=== PATIENT | female | born 1945 | race Caucasian/White ===

== ENCOUNTER 2024-08-12 18:25 | Emergency (ER) | payer OTHER, MEDICARE ==
[~2024-08-12] VITALS: Ht 170.2 cm; Wt 68.7 kg
[2024-08-12 18:35] VITALS: TEMP 98.7
[2024-08-12 18:45] VITALS: BP 116/48; O2SAT 94
[2024-08-12] MEDS ORDERED: VITA1TAB56 PO (19:24)
[2024-08-12] MEDS ORDERED: CHOL100043 PO (19:24)
[2024-08-12] MEDS ORDERED: MELA10TA7 PO (19:24)
[2024-08-12] MEDS ORDERED: DIVA125C5 PO (19:24)
[2024-08-12] MEDS ORDERED: ALEN70TA80 PO (19:24)
[2024-08-12] MEDS ORDERED: APIX5TAB PO (19:24)
[2024-08-12] MEDS ORDERED: OMEG100019 PO (19:24)
[2024-08-12] MEDS ORDERED: QUET25TA PO (19:24)
[2024-08-12] MEDS ORDERED: CITA40TA11 PO (19:24)
[2024-08-12] MEDS ORDERED: ATOR10TA PO (19:24)
[2024-08-12] MEDS ORDERED: ACET-73 PO (19:24)
[2024-08-12] MEDS ORDERED: METO25TA6 PO (19:24)
[2024-08-12] MEDS ORDERED: LIOT5TAB11 PO (19:24)
[2024-08-12] MEDS ORDERED: MEMA10TA PO (19:24)
[2024-08-12] MEDS ORDERED: POLY17PO4 PO (19:24)
[2024-08-12] MEDS ORDERED: LEVO125T8 PO (19:24)
[2024-08-12] MEDS ORDERED: DONE10TA44 PO (19:24)
[2024-08-12] MEDS ORDERED: MENT113O TP (19:24)
== END 2024-08-12 20:52 ==
LOC: ER 18:41
DX: R22.42 Localized swelling, mass and lump, left lower limb (principal); M79.605 Pain in left leg; Z79.01 Long term (current) use of anticoagulants; Z79.899 Other long term (current) drug therapy
CPT/HCPCS: 93971-TC